=== PATIENT | female | born 1975 | race Native Hawaiian/Other Pacific Islander ===

== ENCOUNTER 2017-02-26 13:39 | Outpatient (CLI) | payer OTHER | END 2017-02-26 19:07 | disposition home or self-care (01) | LOC: CT 13:39 | DX: J32.8 Other chronic sinusitis (principal) ==

== ENCOUNTER 2018-11-16 13:21 | Outpatient (CLI) | payer OTHER | END 2018-11-16 22:13 | disposition home or self-care (01) | LOC: US 13:21 | DX: N94.6 Dysmenorrhea, unspecified (principal) ==

== ENCOUNTER 2021-03-05 10:40 | Outpatient (CLI) | payer OTHER ==
[2021-03-18 06:31] LABS: PLATELET COUNT 182 K/uL (152-353)
[2021-03-18 06:32] LABS: POTASSIUM 4.1 mmol/L (3.6-5.2)
== END 2021-03-05 13:00 | disposition home or self-care (01) ==
LOC: LABW 10:40
PROVIDERS: ATTEND Nurse Practitioner Family
DX: R53.83 Other fatigue (principal)
CPT/HCPCS: 36415; 80053; 80061; 82306; 82607; 82670; 83001; 84402; 84403; 84436; 84443; 84481; 85027; 86376

== ENCOUNTER 2021-03-26 11:35 | Outpatient (CLI) | payer OTHER | END 2021-03-26 21:26 | disposition home or self-care (01) | LOC: LAB 11:35 | PROVIDERS: ATTEND Nurse Practitioner Family | DX: R53.83 Other fatigue (principal); E04.1 Nontoxic single thyroid nodule; M54.12 Radiculopathy, cervical region; M77.31 Calcaneal spur, right foot | CPT/HCPCS: 36415; 84481; 86376 ==

== ENCOUNTER 2023-02-12 13:17 | Day surgery (SDC) | payer OTHER | END 2023-02-12 16:05 | disposition home or self-care (01) | LOC: OR 13:17 | PROVIDERS: ATTEND Internal Medicine Gastroenterology | PROC: 0DB78ZX Excision of Stomach, Pylorus, Via Natural or Artificial Opening Endoscopic, Diagnostic (ICD-10-PCS; principal; 2023-02-12) | PROC: 0D738DZ Dilation of Lower Esophagus with Intraluminal Device, Via Natural or Artificial Opening Endoscopic (ICD-10-PCS; 2023-02-12) | DX: B37.81 Candidal esophagitis (principal); K22.2 Esophageal obstruction; K29.00 Acute gastritis without bleeding | CPT/HCPCS: J2001; J2704; J7120 ==